=== PATIENT | male | born 1970 | race Caucasian/White ===

== ENCOUNTER 2020-01-08 03:45 | Inpatient (IN) ==
[2020-01-08] MEDS ORDERED: SODIUM CHLORIDE 0.9% 1,000 ML IV STA ×2 (03:54→08:06)
[2020-01-08] MEDS ORDERED: MORPHINE 4 MG/1 ML VIAL IV STA (04:06)
[2020-01-08] MEDS ORDERED: ONDANSETRON 4 MG/2 ML VIAL IV ONE (04:06)
[2020-01-08 04:30] LABS: Albumin 2.3 G/DL (3.4-5.0); Bilirubin,Total 6.2 MG/DL (0.2-1.0); Calcium 7.9 MG/DL (8.5-10.1); Total Protein 5.8 G/DL (6.4-8.3)
[2020-01-08] MEDS ORDERED: THIAMINE INJ 100 MG, FOLIC ACID INJ 1 MG, MAGNESIUM SULF INJ 2 GM, MULTIVITAMIN INJ 10 ... IV ONE (04:38)
[2020-01-08 04:54] LABS: Basophils % 0.3 % (0.0-0.8); Eosinophils % 0.3 % (0.00-10.9); Hematocrit 27.9 VOL% (42.0-52.0); Hemoglobin 9.6 GM/DL (14.0-18.0); Immature Granulocytes % 2.2 %; Immature Granulocytes Absolute 0.07 #; Lymphocytes # 0.3 10*3/uL (1.4-4.0); Mean Corpuscular HGB Conc 34.4 GM/DL (32-36); Mean Corpuscular Volume 103.3 FL (87-102); Mean Platelet Volume 11.5 FL (9.6-12.0); Monocytes % 5.3 % (1.7-12.7); Neutrophils % 82.9 % (38.7-73.9); Platelet Count 128 T/CUMM (130-400); Red Cell Distribution Width 25.8 % (9.3-17.3); White Blood Count 3.2 T/CUMM (4-12)
[2020-01-08] MEDS ORDERED: DEXT 5% NACL 0.45% KCL 40 MEQ 40 MEQ/1,000 ML BAG IV SCH (05:00)
[2020-01-08 05:10] LABS: INR 1.3; PT Patient Result 13.5 SECS (9.8-11.9); Partial Thromboplastin Time 22.2 SECS (23.9-33.8)
[2020-01-08] MEDS ORDERED: POTASSIUM CHLORIDE 20 MEQ TABLET PO STA (05:37)
[2020-01-08] MEDS ORDERED: CIPROFLOXACIN INJ 400 MG in PREMIX 1 EACH IV STA (05:58)
[2020-01-08] MEDS ORDERED: metroNIDAZOLE INJ 500 MG in PREMIX 1 EACH IV STA (05:58)
[2020-01-08 06:17] LABS: Apearance,Urine CLEAR (Clear); Bilirubin,Urine Negative (Negative); Blood, Urine Negative (Negative); Glucose,Urine (UA) Negative (Negative); Ketones,Urine Negative (Negative); Nitrite,Urine Negative (Negative); Protein,Urine Negative; RBC,Urine 2 /HPF (0-4); Squamous Epithelial Cell,Urine Occasional /HPF (0-10); Urine Color Amber (Yellow); Urine Specific Gravity > 1.060 (1.001-1.035); WBC,Urine 1 /HPF (0-6)
[2020-01-08] MEDS ORDERED: MORPHINE 4 MG/1 ML VIAL IV PRN (07:27)
[2020-01-08] MEDS ORDERED: ACETAMINOPHEN 325 MG TABLET PO PRN (07:27)
[2020-01-08] MEDS ORDERED: GLUCAGON 1 MG VIAL IM PRN (07:27)
[2020-01-08] MEDS ORDERED: ONDANSETRON 4 MG/2 ML VIAL IV PRN (07:27)
[2020-01-08] MEDS ORDERED: DEXTROSE 50% 25 GM/50 ML VIAL IV PRN (07:27)
[2020-01-08] MEDS ORDERED: PROMETHAZINE 25 MG/1 ML VIAL IM PRN (07:27)
[2020-01-08] MEDS ORDERED: POTASSIUM CHLORIDE INJ 100 MEQ in SODIUM CHLORIDE 0.9% 1,000 ML IV SCH (07:30)
[2020-01-08] MEDS ORDERED: ENOXAPARIN 100 MG/ML SYRINGE SUBCUT SCH (07:30)
[2020-01-08] MEDS ORDERED: RIVAROXABAN 20 MG TABLET PO SCH (08:00)
[2020-01-08] MEDS ORDERED: metroNIDAZOLE 500 MG/100 ML PREMIX IV ONE (08:37)
[2020-01-08] MEDS: PIPERACILLIN/TAZOBACTAM 3,375 MG in SODIUM CHLORIDE 0.9% 100 ML IV SCH ×2 (09:00→17:46)
[2020-01-08] MEDS: PANTOPRAZOLE 40 MG VIAL IV SCH ×2 (09:02→20:37)
[2020-01-08] MEDS: INSULIN REGULAR 100 UNIT/ML SUBCUT SCH ×4 (09:10→20:55)
[2020-01-08 09:15] LABS: Folate 12.2 NG/ML (5.4-24.0)
[2020-01-08 09:19] LABS: % Iron Saturation 22.8 % (18-50)
[2020-01-08] MEDS ORDERED: MAGNESIUM SULF RIDER 4 GM in PREMIX 1 EACH IV ONE (09:32)
[2020-01-08] MEDS ORDERED: LORazepam 2 MG/1 ML VIAL IV PRN (09:56)
[2020-01-08] MEDS ORDERED: SODIUM PHOSPHATE INJ 30 MMOL in SODIUM CHLORIDE 0.9% 250 ML IV ONE (11:00)
[2020-01-08] MEDS: chlordiazePOXIDE 25 MG CAPSULE PO SCH ×2 (17:49→20:37)
[2020-01-08] MEDS: POTASSIUM CHLORIDE INJ 20 MEQ in LACTATED RINGERS 1,000 ML IV SCH (20:15)
[2020-01-08] MEDS ORDERED: SODIUM CHLORIDE 0.9% 1,000 ML IV ONE (22:37)
[2020-01-09] MEDS: PIPERACILLIN/TAZOBACTAM 3,375 MG in SODIUM CHLORIDE 0.9% 100 ML IV SCH ×4 (00:28→23:55)
[2020-01-09 05:54] LABS: Basophils % 0.3 % (0.0-0.8); Eosinophils # 0.1 10*3/uL (0.0-0.87); Eosinophils % 1.9 % (0.00-10.9); Hematocrit 20.5 VOL% (42.0-52.0); Immature Granulocytes % 1.7 %; Immature Granulocytes Absolute 0.06 #; Lymphocytes # 0.5 10*3/uL (1.4-4.0); Lymphocytes % 13.9 % (21.2-54.2); Mean Corpuscular HGB Conc 35.1 GM/DL (32-36); Mean Corpuscular Volume 102.5 FL (87-102); Mean Platelet Volume 12.1 FL (9.6-12.0); Monocytes % 6.7 % (1.7-12.7); Neutrophils % 75.5 % (38.7-73.9); Platelet Count 115 T/CUMM (130-400); Red Cell Distribution Width 26.1 % (9.3-17.3); White Blood Count 3.6 T/CUMM (4-12)
[2020-01-09 06:03] LABS: Hemoglobin 7.2 GM/DL (14.0-18.0)
[2020-01-09] MEDS: POTASSIUM CHLORIDE INJ 20 MEQ in LACTATED RINGERS 1,000 ML IV SCH (06:11)
[2020-01-09 06:14] LABS: Hypochromasia 2+; Ovalocytes Slight; Platelet Estimate Normal
[2020-01-09 06:17] LABS: Calcium 7.1 MG/DL (8.5-10.1); Osmolality,Calculated 271.7 MOS/KG (273-304)
[2020-01-09 06:27] LABS: Alanine Aminotransferase 44 U/L (16-61); Albumin 1.6 G/DL (3.4-5.0); Alkaline Phosphatase 148 U/L (45-117); Aspartate Amino Transferase 120 U/L (0-37); Blood Urea Nitrogen 7 MG/DL (7-18); Calcium 7.1 MG/DL (8.5-10.1); Estimated Glom Filtration Rate 136 ML/MIN; Glucose 82 MG/DL (74-106); HDL Cholesterol < 10 MG/DL (40-60); Osmolality,Calculated 269.8 MOS/KG (273-304); Total Protein 4.2 G/DL (6.4-8.3); Triglycerides 151 MG/DL (2-150); VLDL CHOLESTEROL 30.2 MG/DL
[2020-01-09] MEDS ORDERED: MAGNESIUM SULF RIDER 4 GM in PREMIX 1 EACH IV PRN (07:38)
[2020-01-09] MEDS ORDERED: MAGNESIUM SULF RIDER 2 GM in PREMIX 1 EACH IV PRN (07:38)
[2020-01-09] MEDS: PANTOPRAZOLE 40 MG VIAL IV SCH ×2 (11:28→22:30)
[2020-01-09] MEDS: chlordiazePOXIDE 25 MG CAPSULE PO SCH ×3 (11:29→22:31)
[2020-01-09] MEDS: INSULIN REGULAR 100 UNIT/ML SUBCUT SCH ×4 (11:29→22:29)
[2020-01-09 13:20] LABS: Hepatitis B Core IgM Quant 0.13 Index; Hepatitis B Surface Ag Quant < 0.10 Index; Hepatitis B Surface Ag Result Negative (Negative); Hepatitis C Virus Ab Quant 0.11 Index; Hepatitis C Virus Ab Result Negative (Negative)
[2020-01-10] MEDS: POTASSIUM CHLORIDE INJ 20 MEQ in LACTATED RINGERS 1,000 ML IV SCH (00:02)
[2020-01-10 05:49] LABS: Basophils % 0.3 % (0.0-0.8); Eosinophils # 0.1 10*3/uL (0.0-0.87); Eosinophils % 1.8 % (0.00-10.9); Hematocrit 21.6 VOL% (42.0-52.0); Hemoglobin 7.3 GM/DL (14.0-18.0); Lymphocytes # 0.7 10*3/uL (1.4-4.0); Lymphocytes % 20.3 % (21.2-54.2); Mean Corpuscular HGB Conc 33.8 GM/DL (32-36); Mean Corpuscular Volume 106.4 FL (87-102); Mean Platelet Volume 11.7 FL (9.6-12.0); Monocytes % 6.1 % (1.7-12.7); Neutrophils % 68.5 % (38.7-73.9); Platelet Count 175 T/CUMM (130-400); Red Blood Count 2.03 MC/CUMM (3.8-5.5); Red Cell Distribution Width 26.8 % (9.3-17.3); White Blood Count 3.3 T/CUMM (4-12)
[2020-01-10 06:05] LABS: Albumin 1.6 G/DL (3.4-5.0); Bilirubin,Total 3.3 MG/DL (0.2-1.0); Calcium 7.5 MG/DL (8.5-10.1); Osmolality,Calculated 271.7 MOS/KG (273-304); Total Protein 4.4 G/DL (6.4-8.3)
[2020-01-10 06:25] LABS: Hypochromasia 2+; Platelet Estimate Adequate
[2020-01-10 06:26] LABS: Ovalocytes Slight
[2020-01-10] MEDS: INSULIN REGULAR 100 UNIT/ML SUBCUT SCH ×4 (07:36→21:20)
[2020-01-10] MEDS: PIPERACILLIN/TAZOBACTAM 3,375 MG in SODIUM CHLORIDE 0.9% 100 ML IV SCH ×2 (09:23→18:08)
[2020-01-10] MEDS: PANTOPRAZOLE 40 MG VIAL IV SCH ×2 (09:23→21:20)
[2020-01-10] MEDS: chlordiazePOXIDE 25 MG CAPSULE PO SCH ×3 (09:24→21:21)
[2020-01-10] MEDS ORDERED: SODIUM CHLORIDE 0.9% 1,000 ML IV PRN (09:29)
[2020-01-10 19:31] LABS: Hematocrit 29.8 VOL% (42.0-52.0); Hemoglobin 10.2 GM/DL (14.0-18.0)
[2020-01-11] MEDS: PIPERACILLIN/TAZOBACTAM 3,375 MG in SODIUM CHLORIDE 0.9% 100 ML IV SCH ×3 (02:25→18:21)
[2020-01-11 06:18] LABS: Basophils % 0.6 % (0.0-0.8); Eosinophils # 0.1 10*3/uL (0.0-0.87); Hematocrit 27.8 VOL% (42.0-52.0); Hemoglobin 9.7 GM/DL (14.0-18.0); Immature Granulocytes % 5.2 %; Immature Granulocytes Absolute 0.18 #; Lymphocytes # 0.8 10*3/uL (1.4-4.0); Lymphocytes % 23.9 % (21.2-54.2); Mean Corpuscular HGB Conc 34.9 GM/DL (32-36); Mean Corpuscular Volume 99.6 FL (87-102); Mean Platelet Volume 11.7 FL (9.6-12.0); Monocytes % 5.5 % (1.7-12.7); Neutrophils % 62.8 % (38.7-73.9); Platelet Count 201 T/CUMM (130-400); Red Blood Count 2.79 MC/CUMM (3.8-5.5); Red Cell Distribution Width 24.9 % (9.3-17.3); White Blood Count 3.5 T/CUMM (4-12)
[2020-01-11 06:26] LABS: INR 1.1; PT Patient Result 11.9 SECS (9.8-11.9)
[2020-01-11 06:56] LABS: Anisocytosis 2+; Band Neutrophils 1 % (0-10); Eosinophils 6 % (0-10); Lymphocytes 22 % (20-55); Metamyelocytes 1 %; Myelocytes 1 %; Platelet Estimate Normal; Segmented Neutrophils 66 % (50-85); Target Cells Few; Total Cells Counted 100
[2020-01-11 06:57] LABS: Burr Cells Few; Macrocytosis 1+; Polychromasia Slight
[2020-01-11 07:06] LABS: Albumin 1.7 G/DL (3.4-5.0); Bilirubin,Total 2.4 MG/DL (0.2-1.0); Calcium 7.6 MG/DL (8.5-10.1); Osmolality,Calculated 279.3 MOS/KG (273-304); Total Protein 4.5 G/DL (6.4-8.3)
[2020-01-11] MEDS: INSULIN REGULAR 100 UNIT/ML SUBCUT SCH ×4 (07:38→21:16)
[2020-01-11] MEDS ORDERED: INDOMETHACIN SUPP 50 MG SUPP RECTAL ONE ×2 (08:00→10:37)
[2020-01-11] MEDS: PANTOPRAZOLE 40 MG VIAL IV SCH ×2 (08:44→21:16)
[2020-01-11] MEDS ORDERED: PHENYLEPHRINE 1 MG/10 ML SYRINGE IV ONE (09:00)
[2020-01-11] MEDS ORDERED: propofoL 200 MG/20 ML VIAL IV ONE (09:00)
[2020-01-11] MEDS ORDERED: SUCCINYLCHOLINE 200 MG/10 ML VIAL ONE ×2 (09:00→13:00)
[2020-01-11] MEDS ORDERED: LIDOCAINE 2% 5 ML VIAL ONE (09:00)
[2020-01-11] MEDS: chlordiazePOXIDE 25 MG CAPSULE PO SCH ×3 (09:01→21:16)
[2020-01-11] MEDS: POTASSIUM CHLORIDE RIDER 10 MEQ in PREMIX 1 EACH IV PRN ×2 (09:26→11:22)
[2020-01-11] MEDS: LACTATED RINGERS 1,000 ML IV SCH (09:27)
[2020-01-11] MEDS ORDERED: fentaNYL 100 MCG/2 ML VIAL ONE (12:40)
[2020-01-11] MEDS ORDERED: MIDAZOLAM 2 MG/2 ML VIAL ONE (12:41)
[2020-01-12] MEDS: PIPERACILLIN/TAZOBACTAM 3,375 MG in SODIUM CHLORIDE 0.9% 100 ML IV SCH (01:30)
[2020-01-12 06:10] LABS: Basophils % 0.6 % (0.0-0.8); Eosinophils # 0.1 10*3/uL (0.0-0.87); Eosinophils % 1.8 % (0.00-10.9); Hematocrit 28.4 VOL% (42.0-52.0); Hemoglobin 9.7 GM/DL (14.0-18.0); Immature Granulocytes % 1.8 %; Immature Granulocytes Absolute 0.06 #; Lymphocytes # 0.8 10*3/uL (1.4-4.0); Lymphocytes % 22.8 % (21.2-54.2); Mean Corpuscular HGB Conc 34.2 GM/DL (32-36); Mean Corpuscular Volume 102.5 FL (87-102); Mean Platelet Volume 11.5 FL (9.6-12.0); Monocytes % 6.1 % (1.7-12.7); Neutrophils % 66.9 % (38.7-73.9); Platelet Count 220 T/CUMM (130-400); Red Blood Count 2.77 MC/CUMM (3.8-5.5); Red Cell Distribution Width 25.6 % (9.3-17.3); White Blood Count 3.3 T/CUMM (4-12)
[2020-01-12 06:33] LABS: Albumin 1.5 G/DL (3.4-5.0); Bilirubin,Total 2.7 MG/DL (0.2-1.0); Calcium 7.5 MG/DL (8.5-10.1); Total Protein 4.4 G/DL (6.4-8.3)
[2020-01-12 06:40] LABS: Hypochromasia 1+; Platelet Estimate Adequate
[2020-01-12] MEDS: INSULIN REGULAR 100 UNIT/ML SUBCUT SCH ×4 (07:42→21:06)
[2020-01-12] MEDS ORDERED: LACTATED RINGERS 1,000 ML IV SCH (10:30)
[2020-01-12] MEDS ORDERED: ceFAZolin 1,000 MG VIAL ONE (10:43)
[2020-01-12] MEDS: LACTATED RINGERS 1,000 ML IV SCH (11:26)
[2020-01-12] MEDS: chlordiazePOXIDE 25 MG CAPSULE PO SCH ×3 (11:26→21:06)
[2020-01-12] MEDS: PANTOPRAZOLE 40 MG VIAL IV SCH ×2 (11:27→21:05)
[2020-01-12] MEDS ORDERED: fentaNYL 100 MCG/2 ML VIAL ONE (12:45)
[2020-01-12] MEDS ORDERED: propofoL 200 MG/20 ML VIAL IV ONE (12:45)
[2020-01-12] MEDS ORDERED: MIDAZOLAM 2 MG/2 ML VIAL ONE (12:45)
[2020-01-12] MEDS ORDERED: LIDOCAINE 2% 5 ML VIAL ONE (12:45)
[2020-01-12] MEDS ORDERED: SEVOFLURANE 1 UNIT/15 MINUTE INH ONE (12:45)
[2020-01-12] MEDS ORDERED: ONDANSETRON 4 MG/2 ML VIAL ONE (12:46)
[2020-01-12] MEDS ORDERED: LACTATED RINGERS 1,000 ML IV ONE (12:46)
[2020-01-12] MEDS ORDERED: ACETAMINOPHEN 1,000 MG/100 ML VIAL IV ONE (12:46)
[2020-01-12] MEDS ORDERED: ROCURONIUM 100 MG/10 ML VIAL IV ONE (12:46)
[2020-01-12] MEDS ORDERED: SODIUM CHLORIDE 0.9% 500 ML IV ONE ×2 (16:35→23:30)
[2020-01-12] MEDS ORDERED: SIMETHICONE CHEW 125 MG TABLET PO PRN (23:29)
[2020-01-13 06:10] LABS: Basophils # 0.1 10*3/uL (0.0-0.2); Basophils % 0.3 % (0.0-0.8); Eosinophils # 0.1 10*3/uL (0.0-0.87); Eosinophils % 0.3 % (0.00-10.9); Hematocrit 23.2 VOL% (42.0-52.0); Hemoglobin 7.5 GM/DL (14.0-18.0); Immature Granulocytes % 0.9 %; Immature Granulocytes Absolute 0.13 #; Lymphocytes # 1.2 10*3/uL (1.4-4.0); Lymphocytes % 7.9 % (21.2-54.2); Mean Corpuscular HGB Conc 32.3 GM/DL (32-36); Mean Corpuscular Volume 107.4 FL (87-102); Mean Platelet Volume 11.7 FL (9.6-12.0); Monocytes % 4.2 % (1.7-12.7); Neutrophils % 86.4 % (38.7-73.9); Platelet Count 243 T/CUMM (130-400); Red Blood Count 2.16 MC/CUMM (3.8-5.5); Red Cell Distribution Width 25.7 % (9.3-17.3); White Blood Count 14.7 T/CUMM (4-12)
[2020-01-13 06:49] LABS: Hypochromasia 1+; Macrocytosis 1+; Target Cells Few
[2020-01-13 06:50] LABS: Platelet Estimate Normal
[2020-01-13 07:04] LABS: Albumin 1.6 G/DL (3.4-5.0); Bilirubin,Total 2.1 MG/DL (0.2-1.0); Calcium 7.3 MG/DL (8.5-10.1); Osmolality,Calculated 283.1 MOS/KG (273-304); Total Protein 4.4 G/DL (6.4-8.3)
[2020-01-13 09:27] LABS: Basophils % 0.3 % (0.0-0.8); Eosinophils % 0.2 % (0.00-10.9); Hematocrit 22.6 VOL% (42.0-52.0); Hemoglobin 7.4 GM/DL (14.0-18.0); Immature Granulocytes % 0.8 %; Immature Granulocytes Absolute 0.13 #; Lymphocytes % 6.1 % (21.2-54.2); Mean Corpuscular HGB Conc 32.7 GM/DL (32-36); Mean Corpuscular Volume 107.6 FL (87-102); Mean Platelet Volume 11.5 FL (9.6-12.0); Monocytes % 4.3 % (1.7-12.7); Neutrophils % 88.3 % (38.7-73.9); Platelet Count 252 T/CUMM (130-400); Red Cell Distribution Width 25.1 % (9.3-17.3); White Blood Count 15.5 T/CUMM (4-12)
[2020-01-13] MEDS: PANTOPRAZOLE 40 MG VIAL IV SCH ×2 (09:46→20:35)
[2020-01-13] MEDS: LACTATED RINGERS 1,000 ML IV SCH ×2 (09:48→17:23)
[2020-01-13] MEDS: chlordiazePOXIDE 25 MG CAPSULE PO SCH ×2 (09:49→20:40)
[2020-01-13 09:52] LABS: Hypochromasia 1+
[2020-01-13 09:53] LABS: Macrocytosis 1+; Platelet Estimate Normal; Target Cells Few
[2020-01-13] MEDS: INSULIN REGULAR 100 UNIT/ML SUBCUT SCH ×4 (09:54→22:32)
[2020-01-13 15:55] LABS: Basophils # 0.1 10*3/uL (0.0-0.2); Basophils % 0.4 % (0.0-0.8); Eosinophils % 0.2 % (0.00-10.9); Hematocrit 22.2 VOL% (42.0-52.0); Hemoglobin 7.1 GM/DL (14.0-18.0); Immature Granulocytes Absolute 0.13 #; Lymphocytes % 8.2 % (21.2-54.2); Mean Corpuscular Volume 109.9 FL (87-102); Mean Platelet Volume 11.5 FL (9.6-12.0); Monocytes % 5.8 % (1.7-12.7); Neutrophils % 84.4 % (38.7-73.9); Platelet Count 188 T/CUMM (130-400); Red Blood Count 2.02 MC/CUMM (3.8-5.5); Red Cell Distribution Width 24.6 % (9.3-17.3); White Blood Count 12.7 T/CUMM (4-12)
[2020-01-13 16:39] LABS: Macrocytosis 2+; Platelet Estimate Decreased
[2020-01-13 16:40] LABS: Hypochromasia 1+; Toxic Granulation 1+
[2020-01-13] MEDS ORDERED: SODIUM CHLORIDE 0.9% 1,000 ML IV PRN (18:28)
[2020-01-13] MEDS: TRIAMCINOLONE 0.1% OINT 15 GM TUBE TOP SCH ×2 (18:55→20:41)
[2020-01-14] MEDS: LACTATED RINGERS 1,000 ML IV SCH ×2 (01:55→13:44)
[2020-01-14 04:35] LABS: Basophils % 0.2 % (0.0-0.8); Eosinophils # 0.1 10*3/uL (0.0-0.87); Eosinophils % 0.5 % (0.00-10.9); Hematocrit 19.5 VOL% (42.0-52.0); Immature Granulocytes % 0.9 %; Immature Granulocytes Absolute 0.08 #; Lymphocytes # 1.1 10*3/uL (1.4-4.0); Mean Corpuscular HGB Conc 32.8 GM/DL (32-36); Mean Corpuscular Volume 107.7 FL (87-102); Monocytes % 4.9 % (1.7-12.7); Neutrophils % 81.5 % (38.7-73.9); Platelet Count 173 T/CUMM (130-400); Red Blood Count 1.81 MC/CUMM (3.8-5.5); White Blood Count 9.2 T/CUMM (4-12)
[2020-01-14 04:37] LABS: Hemoglobin 6.4 GM/DL (14.0-18.0)
[2020-01-14 04:55] LABS: Albumin 1.4 G/DL (3.4-5.0); Bilirubin,Total 1.5 MG/DL (0.2-1.0); Calcium 7.1 MG/DL (8.5-10.1); Osmolality,Calculated 277.4 MOS/KG (273-304); Total Protein 4.2 G/DL (6.4-8.3)
[2020-01-14 05:00] LABS: Hypochromasia 2+; Platelet Estimate Adequate
[2020-01-14 05:01] LABS: Macrocytosis Slight
[2020-01-14] MEDS: INSULIN REGULAR 100 UNIT/ML SUBCUT SCH ×4 (09:15→21:12)
[2020-01-14] MEDS: TRIAMCINOLONE 0.1% OINT 15 GM TUBE TOP SCH ×2 (09:17→21:12)
[2020-01-14] MEDS: PANTOPRAZOLE 40 MG VIAL IV SCH ×2 (09:17→21:11)
[2020-01-14] MEDS: chlordiazePOXIDE 25 MG CAPSULE PO SCH ×2 (13:44→21:12)
[2020-01-14] MEDS ORDERED: FUROSEMIDE 20 MG/2 ML VIAL IV ONE (13:46)
[2020-01-14] MEDS ORDERED: ALBUTEROL/IPRATROPIUM 3 ML NEB RESP TX PRN (13:46)
[2020-01-14] MEDS: BENZONATATE 100 MG CAPSULE PO PRN ×2 (14:11→15:38)
[2020-01-14 18:40] LABS: Hematocrit 30.8 VOL% (42.0-52.0)
[2020-01-15 05:43] LABS: Basophils % 0.3 % (0.0-0.8); Eosinophils # 0.1 10*3/uL (0.0-0.87); Eosinophils % 1.4 % (0.00-10.9); Hemoglobin 8.6 GM/DL (14.0-18.0); Immature Granulocytes % 1.4 %; Immature Granulocytes Absolute 0.09 #; Lymphocytes % 14.9 % (21.2-54.2); Mean Corpuscular HGB Conc 33.1 GM/DL (32-36); Mean Corpuscular Volume 99.6 FL (87-102); Mean Platelet Volume 11.9 FL (9.6-12.0); Monocytes % 4.8 % (1.7-12.7); Neutrophils % 77.2 % (38.7-73.9); Platelet Count 164 T/CUMM (130-400); Red Blood Count 2.61 MC/CUMM (3.8-5.5); Red Cell Distribution Width 22.4 % (9.3-17.3); White Blood Count 6.5 T/CUMM (4-12)
[2020-01-15 06:10] LABS: Anisocytosis 1+; Ovalocytes 1+; Platelet Estimate Normal; Target Cells 1+
[2020-01-15 06:40] LABS: Calcium 7.3 MG/DL (8.5-10.1); Osmolality,Calculated 276.5 MOS/KG (273-304)
[2020-01-15] MEDS: INSULIN REGULAR 100 UNIT/ML SUBCUT SCH ×3 (07:59→15:58)
[2020-01-15] MEDS: chlordiazePOXIDE 25 MG CAPSULE PO SCH (08:49)
[2020-01-15] MEDS: POTASSIUM CHLORIDE 20 MEQ TABLET PO PRN ×2 (08:59→10:55)
[2020-01-15] MEDS: PANTOPRAZOLE 40 MG VIAL IV SCH ×2 (09:00→21:25)
[2020-01-15] MEDS: TRIAMCINOLONE 0.1% OINT 15 GM TUBE TOP SCH ×2 (09:00→21:20)
[2020-01-15] MEDS ORDERED: FUROSEMIDE 40 MG/4 ML VIAL IV ONE (10:35)
[2020-01-15] MEDS: FUROSEMIDE 20 MG/2 ML VIAL IV SCH (21:20)
[2020-01-16] MEDS: chlordiazePOXIDE 25 MG CAPSULE PO SCH ×2 (00:29→09:13)
[2020-01-16 05:25] LABS: Basophils % 0.5 % (0.0-0.8); Eosinophils # 0.1 10*3/uL (0.0-0.87); Eosinophils % 1.5 % (0.00-10.9); Hematocrit 29.6 VOL% (42.0-52.0); Hemoglobin 9.7 GM/DL (14.0-18.0); Immature Granulocytes % 1.7 %; Lymphocytes # 1.1 10*3/uL (1.4-4.0); Mean Corpuscular HGB Conc 32.8 GM/DL (32-36); Mean Corpuscular Volume 101.7 FL (87-102); Mean Platelet Volume 10.9 FL (9.6-12.0); Monocytes % 7.4 % (1.7-12.7); Neutrophils % 70.9 % (38.7-73.9); Platelet Count 226 T/CUMM (130-400); Red Blood Count 2.91 MC/CUMM (3.8-5.5); Red Cell Distribution Width 21.8 % (9.3-17.3)
[2020-01-16 05:53] LABS: Calcium 8.3 MG/DL (8.5-10.1); Osmolality,Calculated 275.5 MOS/KG (273-304)
[2020-01-16] MEDS ORDERED: ALBUMIN 25% 25 GM in PREMIX 1 EACH IV ONE (09:00)
[2020-01-16] MEDS: PANTOPRAZOLE 40 MG VIAL IV SCH ×2 (09:45→21:27)
[2020-01-16] MEDS: BENZONATATE 100 MG CAPSULE PO PRN ×2 (09:45→18:38)
[2020-01-16] MEDS: TRIAMCINOLONE 0.1% OINT 15 GM TUBE TOP SCH ×2 (09:52→21:28)
[2020-01-16] MEDS: FUROSEMIDE 20 MG/2 ML VIAL IV SCH (10:04)
[2020-01-16] MEDS ORDERED: FUROSEMIDE 40 MG/4 ML VIAL IV ONE (12:00)
[2020-01-16] MEDS: chlordiazePOXIDE 10 MG CAPSULE PO SCH (21:28)
[2020-01-17 06:26] LABS: Basophils % 0.5 % (0.0-0.8); Eosinophils # 0.1 10*3/uL (0.0-0.87); Eosinophils % 1.6 % (0.00-10.9); Hemoglobin 9.4 GM/DL (14.0-18.0); Immature Granulocytes % 0.9 %; Immature Granulocytes Absolute 0.05 #; Lymphocytes # 0.9 10*3/uL (1.4-4.0); Lymphocytes % 16.7 % (21.2-54.2); Mean Corpuscular HGB Conc 32.4 GM/DL (32-36); Mean Corpuscular Volume 102.5 FL (87-102); Mean Platelet Volume 11.2 FL (9.6-12.0); Monocytes % 8.2 % (1.7-12.7); Neutrophils % 72.1 % (38.7-73.9); Platelet Count 246 T/CUMM (130-400); Red Blood Count 2.83 MC/CUMM (3.8-5.5); Red Cell Distribution Width 21.2 % (9.3-17.3); White Blood Count 5.6 T/CUMM (4-12)
[2020-01-17 06:58] LABS: Calcium 8.1 MG/DL (8.5-10.1); Osmolality,Calculated 270.8 MOS/KG (273-304)
[2020-01-17] MEDS: PANTOPRAZOLE 40 MG VIAL IV SCH (10:07)
[2020-01-17] MEDS: BENZONATATE 100 MG CAPSULE PO PRN (10:08)
[2020-01-17] MEDS: TRIAMCINOLONE 0.1% OINT 15 GM TUBE TOP SCH (10:13)
[2020-01-17] MEDS: chlordiazePOXIDE 10 MG CAPSULE PO SCH (10:16)
[2020-01-17 11:20] VITALS: BP 128/77
== END 2020-01-17 15:05 | disposition home or self-care (01) | DRG 417 ==
LOC: N.ED 03:45 → N.EDINP 03:45 → SUATTDRO 07:27 → N.3E 09:53 → SUATTDRO 01-09 10:03
PROVIDERS: ADMIT Internal Medicine; ATTEND Internal Medicine
PROC: LAPCHOL (2020-01-12 10:19)